=== PATIENT | female | born 1965 | race Caucasian/White ===

== ENCOUNTER 2018-01-11 22:46 | Emergency (ER) | payer SELFPAY ==
[~2018-01-11] VITALS: Ht 162.6 cm; Wt 90.7 kg
[~2018-01-11 22:46] MED LIST: NKM
[2018-01-11 23:00] VITALS: BP 143/93
--- NOTE | 2018-01-11 23:44 | Emergency Room Report ---
History of Present Illness General Chief Complaint: Vomiting Source: Patient, EMS Present Illness HPI Is a 52-year-old female brought in by EMS on [address] street. She was very hesitant historian. She told the paramedics she has no problem. She complaining of weakness and abdominal pain and nausea and vomiting. There was someone with her who did not come along. She told me that she has no medical problem but may need a double mastectomy because of cancer. She said that she is undergoing chemotherapy. She then changed her story when my exam reveal otherwise. She said she had 10 double mastectomy. She had evidence of previous IV on her left hand. She said that she went to the hospital 2 months ago. She didn't change her to a month ago. I told patient that the IVs fresh. She didn't said it was 2 days ago. I also saw recent abdominal surgery. She told me this was done a couple months ago. I said it does not make sense since this is a fresh scar with Steri-Strips still on it. She didn't change in mind and told me 2 days ago. She was refusing treatment to the nursing staff. She said she wanted to go but did not want to go and want to sleep. She then changed her mind and wanted to cooperate. But she still refusing IV. She went to the bathroom to give a urine sample but still the cup with water. She did this several times. She is asking for food. Allergies: Coded Allergies: No Known Allergies (Unverified , 01/11/18) Patient History Past Medical History: see triage record, old chart reviewed Past Surgical History: other Pertinent Family History: none Social History: Denies: smoking Last Menstrual Period: unk Now: No Immunizations: other Reviewed Nursing Documentation: PMH: Agreed; PSxH: Agreed Nursing Documentation-PMH Past Medical History: No Stated History Review of Systems Eye: Denies: eye pain, blurred vision ENT: Denies: ear pain, nose congestion, throat swelling Respiratory: Denies: cough, shortness of breath Cardiovascular: Denies: chest pain, palpitations Gastrointestinal: Reports: abdominal pain, nausea, vomiting; Denies: diarrhea Musculoskeletal: Denies: back pain, joint pain Skin: Denies: rash Neurological: Denies: headache, numbness Endocrine: Denies: increased thirst, increased urine Hematologic/Lymphatic: Denies: easy bruising All Other Systems: negative except mentioned in HPI Physical Exam Vital Signs Date Time Temp Pulse Resp B/P (MAP) Pulse Ox O2 Delivery O2 Flow Rate FiO2 01/11/18 22:42 98.4 95 18 143/93 99 Room Air 98.4 vitals normal Sp02 EP Interpretation: reviewed, normal General Appearance: well appearing, no apparent distress, alert Head: normocephalic, atraumatic Eyes: bilateral eye PERRL, bilateral eye EOMI ENT: hearing grossly normal, normal pharynx Neck: full range of motion, supple, no meningismus Respiratory: chest non-tender, lungs clear, normal breath sounds Cardiovascular #1: regular rate, rhythm, no murmur Gastrointestinal: normal bowel sounds, non tender, soft, no mass, no organomegaly, no bruit, non-distended, other - surgical incisions. They're clean withou Musculoskeletal: back normal, gait/station normal, normal range of motion Psychiatric: mood/affect normal Skin: warm/dry Medical Decision Making Diagnostic Impression: Primary Impression: Abdominal pain with vomiting Additional Impression: Drug abuse ER Course Patient presents with abdominal pain and vomiting get want to eat here. I suspect there is an drug abuse issue going on here. She said that she is staying at a place that is handling her pain medication. She is walking around without any issue. We'll discharge the patient. CT/MRI/US Diagnostic Results CT/MRI/US Diagnostic Results : Imaging Test Ordered: CT abdomen and pelvis Impression Read by radiologist. Postoperative changes. No obstruction. Last Vital Signs Date Time Temp Pulse Resp B/P (MAP) Pulse Ox O2 Delivery O2 Flow Rate FiO2 01/11/18 22:42 98.4 95 18 143/93 99 Room Air 98.4 Status: improved Disposition: HOME, SELF-CARE Condition: Stable Patient Instructions: Nausea and Vomiting, Adult Additional Instructions: Follow-up with your doctor in 7 days. Return if symptom worsen. BLAKE LEE M.D. Jan 11, 2018 23:44
--- NOTE | 2018-01-12 00:17 | Diagnostic Imaging Report ---
EXAM: CT Abdomen and Pelvis Without Intravenous Contrast CLINICAL HISTORY: ABD PAIN TECHNIQUE: Axial computed tomography images of the abdomen and pelvis without intravenous contrast. CTDI is 0.15, 18.16 mGy and DLP is 1100 mGy-cm. One or more of the following dose reduction techniques were used: automated exposure control, adjustment of the mA and/or kV according to patient size, use of iterative reconstruction technique. Coronal and sagittal reformatted images were created and reviewed. COMPARISON: No relevant prior studies available. FINDINGS: Lung bases: See below. Pleural space: Very small left-sided pleural effusion with probable mild atelectasis at the lung bases. Heart: Cardiomegaly. Mediastinum: Question of some wall thickening of the distal esophagus. Esophagitis or a neoplastic process cannot be excluded. ABDOMEN: Liver: Fatty infiltration of the liver. 2.0 x 1.2 cm low-density lesion suspected in the lateral segment of the left lobe of the liver. Follow-up multiphasic CT or MRI of the liver is recommended for further evaluation if the patient can tolerate contrast. Gallbladder and bile ducts: Status post cholecystectomy. There is a mild prominence of the biliary ducts which can be seen normally status post cholecystectomy. Pancreas: The pancreas is grossly unremarkable for a noncontrast CT. No ductal dilation. Spleen: The spleen is grossly unremarkable for a noncontrast CT. Adrenals: Unremarkable for a noncontrast CT. Kidneys and ureters: No evidence for hydronephrosis. No evidence for renal or ureteral stone. Small low-density lesion in the right kidney which is too small to adequately characterize. Stomach and bowel: Status post surgical changes of the stomach. There is some mild infiltration of the fat adjacent to the stomach which may be related to postsurgical changes. An acute infectious/inflammatory process cannot be excluded. Moderate amount of stool in the colon. No evidence for significant bowel loop dilation to suggest an obstructive process. PELVIS: Appendix: The appendix is not clearly identified. No evidence for pericecal inflammatory changes. Bladder: The bladder is grossly unremarkable. No stones. Reproductive: The uterus is grossly unremarkable. ABDOMEN and PELVIS: Intraperitoneal space: No free intraperitoneal fluid or free intraperitoneal gas. Bones/joints: Degenerative changes of the thoracolumbar spine. No acute fracture. No dislocation. Soft tissues: Mild infiltration of the subcutaneous fat anteriorly. A small amount of gas is seen in the subcutaneous tissues along the right side of the abdomen because of which is unclear. This may be related to a prior injection. An infectious process cannot be excluded radiographically. Bilateral breast implants. Vasculature: The aorta is grossly unremarkable for a noncontrast CT. No abdominal aortic aneurysm. Lymph nodes: Unremarkable. No enlarged lymph nodes. IMPRESSION: 1. Status post surgical changes of the stomach. There is some mild infiltration of the fat adjacent to the stomach which may be related to postsurgical changes. An acute infectious/inflammatory process cannot be excluded. 2. Question of some wall thickening of the distal esophagus. Esophagitis or a neoplastic process cannot be excluded. 3. Fatty infiltration of the liver. 4. 2.0 x 1.2 cm low-density lesion suspected in the lateral segment of the left lobe of the liver. Follow-up multiphasic CT or MRI of the liver is recommended for further evaluation if the patient can tolerate contrast. 5. Cardiomegaly. 6. Mild infiltration of the subcutaneous fat anteriorly. A small amount of gas is seen in the subcutaneous tissues along the right side of the abdomen because of which is unclear. This may be related to a prior injection. An infectious process cannot be excluded radiographically. [employer] 01/12/18 00:34 Verify Receipt Verified receipt with WADE Barbour in ER for Orville Castro MD on 01/12 00:34 (-07:00)
[2018-01-12 01:20] VITALS: BP 143/93
== END 2018-01-12 01:20 | disposition home or self-care (01) ==
LOC: EDBD 22:46 → EMR 23:30
DX: R10.9 Unspecified abdominal pain (principal); R11.10 Vomiting, unspecified; F19.10 Other psychoactive substance abuse, uncomplicated; Z90.13 Acquired absence of bilateral breasts and nipples; Z85.3 Personal history of malignant neoplasm of breast; I51.7 Cardiomegaly; K76.0 Fatty (change of) liver, not elsewhere classified
CPT/HCPCS: 74176; 99284